=== PATIENT | male | born 1985 | race Caucasian/White ===

== ENCOUNTER 2018-05-24 00:06 | Emergency (ER) | payer SELFPAY ==
--- NOTE | 2018-05-24 00:56 | ED ---
Substance Abuse/Use - HPI Summary HPI Summary: This patient is a 32 year old M brought in by police for a legal blood draw. The patient states that he feels fine. - History Of Current Complaint Chief Complaint: EDGeneral Stated Complaint: LEGAL BLOOD DRAW Hx Obtained From: Patient PMH/Surg Hx/FS Hx/Imm Hx History: Denies: Hx Dialysis Sensory History: Denies: Hx Deafness Infectious Disease History: Yes Infectious Disease History: Denies: Traveled Outside the [place] in Last 30 Days - Family History Known Family History: Positive: None - didn't give - Social History Alcohol Use: Occasionally Substance Use Type: Reports: None Smoking Status (MU): Heavy Every Day Tobacco Smoker Review of Systems Negative: Fever Negative: Shortness Of Breath All Other Systems Reviewed And Are Negative: Yes Physical Exam - Summary Physical Exam Summary: Appearance: Well-appearing, Well-nourished, lying in bed comfortably. Appears mildly intoxicated Skin: Warm, dry, no obvious rash Eyes: sclera anicteric, no conjunctival pallor ENT: mucous membranes moist, pharynx appears normal Neck: Supple, nontender Respiratory: Clear to auscultation, no signs of respiratory distress Cardiovascular: Normal distal pulses in tibial and radial bilaterally. Abdomen: deferred Musculoskeletal: Normal, Strength/ROM Intact Neurological: A&Ox3, awake and alert, mentation is normal, speech is fluent and appropriate Psychiatric: affect is normal, does not appear anxious or depressed Triage Information Reviewed: Yes Vital Signs On Initial Exam: Initial Vitals Temp Pulse Resp BP Pulse Ox 97.7 F 82 16 133/81 100 05/24/18 00:14 05/24/18 00:14 05/24/18 00:14 05/24/18 00:14 05/24/18 00:14 Vital Signs Reviewed: Yes Diagnostics - Vital Signs Vital Signs Temp Pulse Resp BP Pulse Ox 05/24/18 00:14 97.7 F 82 16 133/81 100 - Laboratory Lab Statement: Any lab studies that have been ordered have been reviewed, and results considered in the medical decision making process. Course/Dx - Course Course Of Treatment: This patient is a 32 year old M brought in by police for a legal blood draw. The patient states that he feels fine. The patient will be discharged. - Diagnoses Differential Diagnosis/HQI/PQRI: Positive: Alcohol Abuse Provider Diagnoses: Alcohol intoxication Discharge - Sign-Out/Discharge Documenting (check all that apply): Patient Departure - discharge - Discharge Plan Condition: Good Disposition: LAW ENFORCEMENT/COURT Patient Education Materials: Alcohol Intoxication (ED) Referrals: No Primary Care Phys,NOPCP [Primary Care Provider] - - Billing Disposition and Condition Condition: GOOD Disposition: Law Enforcement/Court - Attestation Statements Document Initiated by Scribe: Yes Documenting Scribe: Bam Hoskins Provider For Whom Scribe is Documenting (Include Credential): Johnnie Elliott MD Scribe Attestation: Bam Randall, scribed for Johnnie Elliott MD on 05/24/18 at 1831. Scribe Documentation Reviewed: Yes Provider Attestation: The documentation as recorded by the Bam mccloud accurately reflects the service I personally performed and the decisions made by me, Johnnie Elliott MD Status of Scribe Document: Viewed
[2018-05-24 01:07] VITALS: BP 128/86
== END 2018-05-24 01:12 ==
LOC: ED 00:06
DX: F10.129 Alcohol abuse with intoxication, unspecified (principal); F17.210 Nicotine dependence, cigarettes, uncomplicated
CPT/HCPCS: 99282